=== PATIENT | female | born 1930 | race Caucasian/White ===

== ENCOUNTER 2017-04-15 17:30 | Observation (INO) | payer MEDICARE, OTHER ==
[~2017-04-15] VITALS: Ht 160 cm; Wt 63.5 kg
[~2017-04-15 17:30] MED LIST: ATEN-60 PO; BENA20TA14 PO; CLOP75TA28 PO; DIPH1TAB30 PO; FELO5TAB PO; PANT40TA2 PO; PAR20T PO
[2017-04-15 19:03] LABS: Basophils # (auto) 0 uL; Basophils % (auto) 0.3 % (0.0-2.0); CONDITION Y; Eosinophils # (auto) 0.2 uL; Hematocrit 31.6 % (36.0-46.0); Hemoglobin 10.7 g/dL (12.2-16.2); Lymphocytes # (auto) 1.5 uL; Lymphocytes % (auto) 18.1 % (10.0-50.0); Mean Corpuscular Hemoglobin 30.5 pg (28.0-32.0); Mean Corpuscular Volume 89.8 fL (80.0-100.0); Mean Platelet Volume 7.9 fL (7.4-10.4); Monocytes # (auto) 0.8 uL; Monocytes % (auto) 9.3 % (0.0-12.0); Neutrophils # (auto) 5.9 uL; Neutrophils % (auto) 70.3 % (37.0-80.0); Platelet Count (auto) 330 10^3/uL (140-450); Red Cell Distribution Width 13.3 % (11.6-16.0); White Blood Cell 8.4 10^3/uL (4.4-10.8)
[2017-04-15 19:15] LABS: INR 1.16 (0.9-1.15); Partial Thromboplastin Time 35.4 sec (22.64-33.71)
[2017-04-15 19:18] LABS: Prothrombin Time 12.7 sec (9.37-12.3)
[2017-04-15 19:20] LABS: Albumin 2.9 g/dL (3.4-5.0); Anion Gap 10 (5-15); BUN/Creatinine Ratio 22.2; Blood Urea Nitrogen 14 mg/dL (7-18); Calcium 8.3 mg/dL (8.5-10.1); Carbon Dioxide 27 mmol/L (21-32); Chloride 105 mmol/L (98-107); GFR African American 115 mL/min; GFR Non-African American 95 mL/min; Glucose 99 mg/dL (74-106); Magnesium 2.2 mg/dL (1.6-2.6); Potassium 3.4 mmol/L (3.5-5.1); Sodium 142 mmol/L (136-145)
[2017-04-15 19:25] LABS: Alkaline Phosphatase 158 U/L (45-117); Aspartate Aminotransferase 53 U/L (15-37); Bilirubin, Total 0.6 mg/dL (0.2-1.0); Total Protein 6.3 g/dL (6.4-8.2)
[2017-04-15 19:26] LABS: B-Type Natriuretic Peptide 57.08 pg/mL (0-100)
[2017-04-15] MEDS ORDERED: cloNIDine HCL 0.1 MG TAB PO ONE (19:30)
[2017-04-15 19:35] LABS: Temperature: 23.3 C (20.0-25.0)
[2017-04-15 22:18] VITALS: BP 149/73
== END 2017-04-15 22:16 | disposition home or self-care (01) | DRG 305 ==
LOC: ER 17:37 → OVERFLOW 18:01 → UNDOADMOB 22:16 → OVERFLOW 22:16 → ER 22:16
PROVIDERS: ADMIT Family Medicine; ATTEND Family Medicine
DX: I10 Essential (primary) hypertension (principal); M79.661 Pain in right lower leg; D64.9 Anemia, unspecified; R79.89 Other specified abnormal findings of blood chemistry
CPT/HCPCS: 36415; 71010; 80053; 83735; 83880; 84484; 85025; 85610; 85730; 93005; 93971; 99285; G0378